=== PATIENT | female | born 1990 | race Caucasian/White ===

== ENCOUNTER → 2018-05-26 08:17 | Outpatient (CLI) | payer OTHER, SELFPAY ==
--- NOTE | 2018-05-26 | DI.US.S_ITS ---
PROCEDURE: US OB <= 14 WEEKS FETUS INDICATIONS: SIZE AND DATING OUTSIDE/PRIOR DATING DATA: Last menstrual period (LMP): 03/20/18. LMP-based estimated date of delivery (KHUSHBOO): 12/25/18. First dating scan (date and location): 05/26/18, [facility]. Estimated date of delivery (KHUSHBOO) from first dating scan: 12/28/18. TECHNIQUE: Real-time scanning was performed of the fetus and maternal pelvic organs, with image documentation. Endovaginal scanning was also performed to better visualize the fetus and maternal ovaries. COMPARISON: None. FINDINGS: Embryo: Long Neck-rump length with a heartbeat measuring 9 weeks one day. Heart rate is 185 beats per minute. Measurement variability in dating: +/- 4 weeks by LMP, +/- 7 days by mean sac diameter (use before 6 weeks gestation if crown-rump length not able to be measured), +/- 5 days by crown-rump length (up to 8 weeks 6 days gestation), +/- 7 days by crown-rump length (up to 13 weeks 6 days gestation). Maternal organs: Ovaries question 1.7 cm corpus luteum the right ovary.. Limited images through the kidneys demonstrate no hydronephrosis. IMPRESSION: Early first trimester living intrauterine with crown-rump length and a heartbeat measuring 9 weeks one day. Dictated by: Grayson Goldberg M.D. on 05/26/2018 at 12:34 Approved by: Grayson Goldberg M.D. on 05/26/2018 at 12:37
== END ==
PROVIDERS: PCP Family Medicine; Visit Provider Family Medicine
DX: Z34.91 Encounter for supervision of normal pregnancy, unspecified, first trimester (principal); Z3A.09 9 weeks gestation of pregnancy
CPT/HCPCS: 76801; 76817

== ENCOUNTER → 2019-04-09 09:05 | Outpatient (CLI) | payer OTHER, MEDICAID, SELFPAY ==
--- NOTE | 2019-04-09 09:07 | DI.US.S_ITS ---
PROCEDURE: US PELVIC COMPLETE INDICATIONS: IUD PLACEMENT TECHNIQUE: Real-time scanning was performed of the pelvic organs, with image documentation. Additional endovaginal scanning was necessary due to incomplete visualization of the adnexal and endometrial structures by transabdominal scanning. COMPARISON: [facility], US ABDOMEN LIMITED, 04/09/2019, 9:25. [facility], PELVIC COMPLETE, 10/18/2009, 12:55. FINDINGS: Transabdominal scanning: The left kidney is obscured by overlying bowel gas. The right kidney is unremarkable. Free pelvic fluid is seen, which is considered to be within physiologic limits. Endovaginal scanning: Uterus: Uterus is normal in size at 5.9 x 5.7 x 3.5 cm. the endometrium is not seen. An IUD is seen at its expected location. This strings can be seen at the internal os. Ovaries: The right ovary measures 3.2 x 1.9 x 2.1 cm. The left ovary measures 3.7 x 2.1 x 2.1 cm. The ovaries have a normal sonographic appearance, with numerous bilateral follicles seen. No adnexal masses are seen. IMPRESSION: An IUD is seen. On these images, the strings appear to be at the internal os. Please correlate with clinical examination. Multiple bilateral ovarian follicles are seen. Please correlate with potential polycystic ovarian syndrome. Dictated by: René Bernal M.D. on 04/09/2019 at 10:54 Approved by: René Bernal M.D. on 04/09/2019 at 11:03
--- NOTE | 2019-04-09 09:07 | DI.US.S_ITS ---
PROCEDURE: US ABDOMEN LIMITED INDICATIONS: RIGHT GROIN MASS TECHNIQUE: Real-time focused scanning was performed of the abdomen, with image documentation. COMPARISON: [facility], US, US PELVIC COMPLETE, 04/09/2019, 9:39. FINDINGS: Scanning is performed at the area of clinical abnormality within the right groin crease, near the level of the vagina. At this site, there is a superficial 1.2 x 0.5 x 0.3 cm hypoechoic nonvascular structure that is noncompressible. IMPRESSION: At the area of clinical concern, there is a 1.2 cm nonvascular lesion, which may be related to a skin lesion, such as a sebaceous cyst. Dictated by: René Bernal M.D. on 04/09/2019 at 10:52 Approved by: René Bernal M.D. on 04/09/2019 at 10:54
== END ==
PROVIDERS: PCP Nurse Practitioner; Referring Provider Nurse Practitioner; Visit Provider Nurse Practitioner
DX: R19.09 Other intra-abdominal and pelvic swelling, mass and lump (principal); Z30.431 Encounter for routine checking of intrauterine contraceptive device
CPT/HCPCS: 76705; 76830; 76856

== ENCOUNTER → 2019-12-07 16:24 | Outpatient (CLI) | payer OTHER, MEDICAID, SELFPAY ==
[2019-12-07 19:31] LABS: Appearance Urine UA CLEAR; Bilirubin Urine UA NEGATIVE (NEGATIVE); Color Urine UA YELLOW; Glucose Urine UA NEGATIVE (Negative); Ketones Urine UA NEGATIVE (NEGATIVE); Leukocyte Esterase Urine UA NEGATIVE (NEGATIVE); Nitrite Urine UA NEGATIVE (Negative); Occult Blood Urine UA NEGATIVE (Negative); Protein Urine UA NEGATIVE (Negative); Urobilinogen Urine UA 0.2 E.U./dL (0.2)
[2019-12-07 19:45] LABS: Bacteria Urine Occasional (0-1); Culture Indicated Urine Cult Not Indicated; Hyaline Casts Urine 1-5/LPF; RBC Urine 0-1/HPF (0-5/HPF); Squamous Epithelial Cell Urine 1-5 /HPF (0-5/HPF); WBC Urine 0-1/HPF (0-5/HPF)
== END ==
PROVIDERS: PCP Nurse Practitioner; Visit Provider Nurse Practitioner Family
DX: N89.8 Other specified noninflammatory disorders of vagina (principal); R35.0 Frequency of micturition
CPT/HCPCS: 81001; 87210

== ENCOUNTER → 2020-12-04 14:21 | Outpatient (CLI) | payer OTHER, SELFPAY ==
[2020-12-04 18:22] LABS: COVID19 -Nasal RAPID Negative (Negative)
== END ==
PROVIDERS: PCP Nurse Practitioner; Visit Provider Nurse Practitioner Family
DX: Z20.822 Contact with and (suspected) exposure to COVID-19 (principal); R11.0 Nausea; R11.10 Vomiting, unspecified; R52 Pain, unspecified; R53.83 Other fatigue
CPT/HCPCS: 87635

== ENCOUNTER → 2021-06-09 16:28 | Outpatient (CLI) | payer SELFPAY | PROVIDERS: PCP Nurse Practitioner; Referring Provider Nurse Practitioner Critical Care Medicine; Visit Provider Nurse Practitioner Critical Care Medicine | DX: J02.9 Acute pharyngitis, unspecified (principal) | CPT/HCPCS: 87070; 87077; 87147; 87186 ==